=== PATIENT | female | born 1960 | race Caucasian/White ===

== ENCOUNTER → 2017-12-02 22:24 | Outpatient (CLI) | payer MEDICARE, OTHER ==
[~2017-12-02 22:24] MED LIST: BAYER CHEWABLE81 MG PO; BENTYL10 MG PO; BIOTIN5 MG PO; CALCIUM 250+D T1 TAB PO; CARAFATE1 G PO; COLACE100 MG PO; DEXILANT60 MG PO; ESGIC TABLET1 TAB PO; ESTRACE2 MG; NEURONTIN 300300 MG; PHENERGAN25 M1 PO; PRISTIQ50 MG PO; PROPAFENONE HC150 MG PO; SALAGEN5 MG; ULTRAM50 MG PO; VALIUM10 MG PO; ZANTAC150 MG; ZOFRAN4 MG PO
== END | disposition home or self-care (01) ==
LOC: D.MAMMO 14:45
DX: Z12.31 Encounter for screening mammogram for malignant neoplasm of breast (principal)

== ENCOUNTER 2017-12-09 19:45 | Emergency (ER) | payer MEDICARE, OTHER ==
[~2017-12-09] VITALS: Ht 162.6 cm; Wt 44.0 kg
[2017-12-09 19:50] VITALS: Ht 162.6 cm; Wt 44.0 kg
[2017-12-09] MEDS ORDERED: BAYER CHEWABLE81 MG PO (19:52)
[2017-12-09] MEDS ORDERED: CALCIUM 250+D T1 TAB PO (19:52)
[2017-12-09] MEDS ORDERED: BIOTIN5 MG PO (19:52)
[2017-12-09] MEDS ORDERED: VALIUM10 MG PO (19:52)
[2017-12-09] MEDS ORDERED: DEXILANT60 MG PO (19:52)
[2017-12-09] MEDS ORDERED: PRISTIQ50 MG PO (19:53)
[2017-12-09] MEDS ORDERED: SALAGEN5 MG (19:53)
[2017-12-09] MEDS ORDERED: CARAFATE1 G PO (19:53)
[2017-12-09] MEDS ORDERED: ESTRACE2 MG (19:53)
[2017-12-09] MEDS ORDERED: NEURONTIN 300300 MG (19:54)
[2017-12-09] MEDS ORDERED: BENTYL10 MG PO (19:54)
[2017-12-09] MEDS ORDERED: PROPAFENONE HC150 MG PO (19:54)
[2017-12-09] MEDS ORDERED: ESGIC TABLET1 TAB PO (19:54)
[2017-12-09] MEDS ORDERED: ZANTAC150 MG (19:55)
[2017-12-09] MEDS ORDERED: ULTRAM50 MG PO (19:55)
[2017-12-09] MEDS ORDERED: PHENERGAN25 M1 PO (19:55)
[2017-12-09] MEDS ORDERED: ZOFRAN4 MG PO (19:55)
[2017-12-09 20:22] LABS: HEMATOCRIT 39.2 % (36.0-48.0); HEMOGLOBIN 13.2 g/dL (12-16); LYMPHOCYTES 42.6 % (15-50); MCHC 33.7 g/dL (31.0-37.0); MCV 95.1 fL (80.0-100.0); NEUTROPHILS 48.9 % (40-80); PLATELET COUNT 360 10x3/uL (130-400); RBC 4.12 10x6/uL (4.00-5.40); WBC 4.8 10x3/uL (4.8-10.8)
[2017-12-09 20:43] LABS: ALBUMIN 3.4 g/dL (3.4-5.0); ALKALINE PHOSPHATASE 49 U/L (46-116); ALT (SGPT) 17 U/L (10-68); BILIRUBIN - TOTAL 0.17 mg/dL (0.2-1.3); CALC OSMOLALITY 277 mosm/kg (275-300); CALCIUM 8.7 mg/dL (8.5-10.1); CHLORIDE - SERUM 102 mmol/L (98-107); CREATININE - SERUM 1.1 mg/dL (0.6-1.3); GLUCOSE 102 mg/dL (74-106); POTASSIUM - SERUM 3.4 mmol/L (3.5-5.1); PROTEIN - SERUM 6.5 g/dL (6.4-8.2); SODIUM 140 mmol/L (136-145); UREA NITROGEN 11 mg/dL (7-18); eGFR NON AFRICAN AMERICAN 54 mL/min (90-120)
[2017-12-09 20:51] LABS: LIPASE 111 U/L (73-393); PRO BNP 39 pg/mL (0-125)
[2017-12-09 20:52] LABS: TROPONIN-I < 0.017 ng/mL (0.000-0.060)
[2017-12-09] MEDS ORDERED: COLACE100 MG PO (22:45)
[2017-12-09 23:04] VITALS: BP 108/69
== END 2017-12-09 23:04 | disposition home or self-care (01) ==
LOC: D.ER 19:45
PROVIDERS: Family Medicine
DX: R10.9 Unspecified abdominal pain (principal); N28.1 Cyst of kidney, acquired; R14.0 Abdominal distension (gaseous)

== ENCOUNTER → 2020-08-15 20:50 | Outpatient (CLI) | payer BC, MEDICARE | END | disposition home or self-care (01) | LOC: D.MAMMO 08-13 11:00 | PROVIDERS: ATTEND Family Medicine | DX: Z12.31 Encounter for screening mammogram for malignant neoplasm of breast (principal) ==